=== PATIENT | female | born 1965 ===

== ENCOUNTER 2019-11-14 11:52 | Emergency (ER) | payer OTHER ==
--- NOTE | 2019-11-14 13:06 | EDM.PDOC ---
ED HPI GENERAL MEDICAL PROBLEM - General Chief Complaint: Headache Stated Complaint: HEADACHE/LETHARGY Time Seen by Provider: 11/14/19 13:06 - History of Present Illness INITIAL COMMENTS - FREE TEXT/NARRATIVE: 54-year-old female presents the emergency room with headaches. She is also having some intermittent lethargy. Patient is visiting here from [place]. She complains of headaches for the last 2 weeks these occur mostly at night. The patient has been taking Naprosyn 500 mg twice daily for about the last year for shoulder pain. The headaches are not associated with any nausea or vomiting seem to be bilateral she does not have photophobia with this but they keep her up at night. The patient also has a history of hypertension she was given Norvasc 10 mg had this filled about a year ago for a months worth and most of them are still in the bottle however her blood pressure is not dangerously high here in the emergency room. She is not had any chest pain breathing difficulties or shortness of breath. Her headaches are nightly. 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 (see below) Headache Pain Score (Numeric/FACES): 5 - Related Data Allergies Allergy/AdvReac Type Severity Reaction Status Date / Time No Known Allergies Allergy Verified 11/14/19 12:39 Home Meds: Home Meds Naproxen [Naprosyn] 500 mg PO BID PRN 11/14/19 [History] amLODIPine [Norvasc] 10 mg PO DAILY 11/14/19 [History] Past Medical History Cardiovascular History: Reports: Hypertension Neurological History: Reports: Headaches, Chronic Social & Family History - Tobacco Use Smoking Status *Q: Never Smoker - Caffeine Use Caffeine Use: Reports: Coffee - Recreational Drug Use Recreational Drug Use: No ED ROS GENERAL - Review of Systems Review Of Systems: See Below HEENT: Reports: No Symptoms Respiratory: Reports: No Symptoms Cardiovascular: Reports: No Symptoms GI/Abdominal: Reports: No Symptoms Neurological: Reports: Headache Psychiatric: Reports: No Symptoms - Physical Exam Exam: See Below Exam Limited By: No Limitations General Appearance: Alert, No Apparent Distress Eye Exam: Bilateral Eye: EOMI, Normal Inspection, PERRL Ears: Normal External Exam, Normal Canal, Hearing Grossly Normal, Normal TMs Nose: Normal Inspection, Normal Mucosa, No Blood Throat/Mouth: Normal Inspection, Normal Lips, Normal Teeth, Normal Gums, Normal Oropharynx, Normal Voice, No Airway Compromise Head Exam: Atraumatic, Normocephalic Neck: Normal Inspection, Supple, Non-Tender, Full Range of Motion, Other (Some mild to moderate paraspinous muscle spasm in the paraspinous muscles in the neck pressing these especially at the insertion of the scalp does not elicit or make her headaches any worse) Respiratory/Chest: No Respiratory Distress, Lungs Clear, Normal Breath Sounds, No Accessory Muscle Use, Chest Non-Tender Cardiovascular: Regular Rate, Rhythm, No Edema, No Murmur Neuro Exam (Abbreviated): Other (Cranial nerves II through XII grossly intact all muscle groups in the upper and lower extremities are equal and appropriate bilaterally deep tendon reflexes at the brachial radialis are equal and appropriate bilaterally cerebellar testing is entirely within normal limits.) Course - Vital Signs Last Recorded V/S: Last Vital Signs Temp 36.3 C 11/14/19 12:46 Pulse 88 11/14/19 12:46 Resp 20 11/14/19 12:46 BP 141/88 H 11/14/19 12:46 Pulse Ox 96 11/14/19 12:46 - Re-Assessments/Exams Free Text/Narrative Re-Assessment/Exam: 11/14/19 15:00 Presents the emergency room at a relatively asymptomatic state her blood pressure is stable here. I believe she is probably developing rebound headaches secondary to long-term nonsteroidal anti-inflammatory medication usage. I have recommended that she discontinue the Naprosyn based on her age Tylenol would be a more appropriate medication for reduce the risk of hypertension heart attack and stroke. I have advised the patient to stop the Naprosyn and for the next 5 days I want her to get some Tylenol extra strength take 2 4 times a day for 5 days and then on an as-needed basis thereafter. She needs to follow-up with her regular physician when she gets home. In the meantime she can follow-up with the hospital clinic here or return to the emergency room. Departure - Departure Time of Disposition: 15:02 Disposition: Home, Self-Care 01 Clinical Impression: Analgesic rebound headache - Discharge Information Referrals: PCP,None [Primary Care Provider] - Forms: ED Department Discharge Additional Instructions: Return to the emergency room with any questions problems or worsening symptoms. Stop the Naprosyn! Start extra strength Tylenol 500 mg take 2 4 times a day. After 5 days decrease it to taking 2 on an as-needed basis. Follow-up with your regular physician when you get home. If you are still here in 1 week follow-up at the hospital clinic for recheck in 1 week. [phone] Sepsis Event Note (ED) - Evaluation Sepsis Screening Result: No Definite Risk - Focused Exam Vital Signs: Vital Signs Temp Pulse Resp BP Pulse Ox 11/14/19 12:46 36.3 C 88 20 141/88 H 96
== END 2019-11-14 15:10 | disposition home or self-care (01) ==
LOC: JD.ED 11:52
DX: R51 Headache (principal); T39.315A Adverse effect of propionic acid derivatives, initial encounter; I10 Essential (primary) hypertension; Z79.899 Other long term (current) drug therapy
CPT/HCPCS: 99282; 99283